=== PATIENT | female | born 1985 | race Caucasian/White ===

== ENCOUNTER 2019-07-05 00:40 | Outpatient (CLI) | payer MEDICAID, SELFPAY ==
--- NOTE | 2019-07-05 15:04 | DI.US_ITS ---
EXAM: US OB 1ST TRIMESTER CLINICAL HISTORY: CHECK SAADIA, HEARTBEAT, HX LABOR, MISCARRIAGE TECHNIQUE: Ultrasound performed using standard protocol. Transabdominal and transvaginal exams wer e performed. COMPARISON: No exams were available for comparison FINDINGS: A gestational sac is seen within the endometrium, positioned near the fundus. The uterus measures 1 0.2 x 4.5 x 6 cm. [place]-rump length of the gestational sac measurements correspond to 7 weeks 1 day. cardiac activity was demonstrated at 143-155 beats per minute. A yolk sac is seen. A corpus luteum cyst is noted on the right ovary. The left ovary is unremarkable. There is no free fluid. IMPRESSION: Living intrauterine gestation of 7 weeks 1 day.
== END 2019-07-05 01:00 ==
PROVIDERS: PCP Naturopath; Visit Provider Naturopath
DX: Z34.91 Encounter for supervision of normal pregnancy, unspecified, first trimester (principal); N83.11 Corpus luteum cyst of right ovary
CPT/HCPCS: 76801

== ENCOUNTER 2021-03-10 01:12 | Outpatient (CLI) | payer MEDICAID, SELFPAY ==
--- NOTE | 2021-03-10 | DI.US_ITS ---
Exam(s) US OB 2-3 TRIMESTER EXAM: US OB 2-3 TRIMESTER CLINICAL HISTORY: ANATOMY,Z34.81. TECHNIQUE: Transabdominal obstetrical ultrasound was performed. COMPARISON: US US OB 1ST TRIMESTER from 07/05/2019 FINDINGS: There is a single viable intrauterine gestation with cardiac activity identified-150 bpm. Amniotic fluid: There is a normal amount of amniotic fluid. Placental location: The placenta is posterior grade 1,. The placenta is slightly low lying. The dis tance between the tip of the placenta and the internal cervical os is 2 cm.Cervix is long and closed. ANATOMY: A 3 vessel umbilical cord is seen. A four-chamber cardiac view was obtained. Right and left ventricular outflow tracts were imaged. There are no obvious abnormalities of the spinal column evident. There is no obvious abnormal ity of the anterior abdominal wall. stomach and urinary bladder are identified and there is no evidence of hydronephrosis. No abnormalities of the upper lip region are identified. No evidence of choroid plexus cysts i n the brain. Dating parameters place this at approximately 19 weeks and 5 days gestational age. BPD measures 19 weeks and 3 days HC measures 19 weeks and 4 days AC measures 19 weeks and 6 days FL measures 20 weeks Estimated weight is 318 gm-0 pounds 11 ounces Fetus is at the 55th percentile on the Hadlock scale. IMPRESSION:: Single viable intrauterine gestation which is approximately 19 weeks and 5 days gestati onal age, implying an SAADIA of July 30, 2021. There are no obvious anomalies evident on today's study. The placenta is posterior and slightly low lying. On today's study the distance from the tip of the placenta to the internal cervical os is 2 cm. This should be rechecked in the 3rd trimester. There is a normal amount of amniotic fluid. DATA REPOSITORY:
== END 2021-03-10 01:32 ==
PROVIDERS: PCP Naturopath; Visit Provider Advanced Practice Midwife
DX: Z34.82 Encounter for supervision of other normal pregnancy, second trimester (principal); Z3A.19 19 weeks gestation of pregnancy
CPT/HCPCS: 76805

== ENCOUNTER 2021-04-18 22:24 | Observation (INO) | payer MEDICAID, SELFPAY ==
[2021-04-18 22:39] VITALS: BP 123/75; PULSE 102; RESP 24; TEMP 37.4; O2SAT 95
[2021-04-18 23:02] LABS: Abs Immature Grans 0.03 10^3/uL (0.0-0.06); Absolute Basophil Count 0.01 10^3/uL (0.0-0.2); Absolute Eosinophil Count 0.01 10^3/uL (0.0-0.7); Absolute Lymphocyte Count 0.81 10^3/uL (1.2-3.4); Absolute Monocyte Count 0.14 10^3/uL (0.1-0.8); Absolute Neutrophil Count 3.05 10^3/uL (1.2-6.7); Basophils % 0.2; Eosinophils % 0.2; HCT 37.4 % (36.0-46.0); HGB 12.4 g/dL (11.2-15.7); Immature Grans % 0.7; MCH 26.7 pg (27.0-33.0); MCHC 33.2 % (32.0-36.0); MCV 80.6 fL (80-95); MPV 8.9 fL (8.0-11.0); Monocytes % 3.5; Neutrophils % 75.4; Nucleated RBC 0 %; Platelet Count 156 10^3/uL (130-400); RBC 4.64 10^6/uL (3.93-5.22); RDW 13.4 % (11.7-14.6); RDW-SD 38.9 fL; WBC 4.04 10^3/uL (4.4-10.8)
--- NOTE | 2021-04-18 23:10 | W.ED.GENAD ---
Discharge Plan Disposition Patient Disposition: [facility] INPATIENT Condition: Stable Discharge Details Clinical Impression: COVID-19, Abdominal pain during , Hypokalemia Primary Care Provider: Cesia Wong ED Provider: Mo Israel Home Meds and New Rx's Prescriptions: No Action prenat.vits,ela,[id number] Tablet 1 tab PO DAILY RF: 0 [place] 8 % gel 1 appful VG DAILY RF: 0 Medical Decision Making 35-year-old female approximately 25 weeks , diagnosed with Covid 9 days ago, presents to the ER today reporting body aches, nausea, vomiting, concern for dehydration, lower abdominal pain, and voiding every time she coughs. Purely from a COVID-19 standpoint she appears well, nontoxic, afebrile, speaking in full sentences, O2 sats 95% on room air. Clinically she appears slightly dry. Abdomen soft, nontender. heart tones reveal a heart rate in the 160s. Feel as though obtaining a CBC, CMP, urinalysis, giving IV fluid is appropriate for her presentation and if unremarkable then admitting to OB for monitoring and further assessment of her lower abdominal pain Potassium is 3.1, will give 40 p.o. GFR greater than 60. Urinalysis pending. Case discussed with Dr. Zuñiga, OB, who is agreeable to have the patient admitted to the OB floor for monitoring and further assessment of her lower abdominal pain. I will write bridging orders. Medical Records Medical records reviewed: Yes I reviewed the patient's medical records. Lab Data Lab results reviewed: Yes I reviewed the patient's lab results. Labs: Laboratory Tests Range/Units 04/18/21 04/18/21 22:55 22:55 WBC (4.4-10.8) 10^3/uL 4.04 L RBC (3.93-5.22) 10^6/uL 4.64 Hgb (11.2-15.7) g/dL 12.4 Hct (36.0-46.0) % 37.4 MCV (80-95) fL 80.6 MCH (27.0-33.0) pg 26.7 L MCHC (32.0-36.0) % 33.2 RDW (11.7-14.6) % 13.4 Plt Count (130-400) 10^3/uL 156 MPV (8.0-11.0) fL 8.9 Immature Gran % 0.7 Neutrophils % 75.4 Lymphocytes % 20.0 Monocytes % 3.5 Eosinophils % 0.2 Basophils % 0.2 Nucleated RBC % % 0 Absolute Neutrophils (1.2-6.7) 10^3/uL 3.05 Absolute Lymphocytes (1.2-3.4) 10^3/uL 0.81 L Absolute Monocytes (0.1-0.8) 10^3/uL 0.14 Absolute Eosinophils (0.0-0.7) 10^3/uL 0.01 Absolute Basophils (0.0-0.2) 10^3/uL 0.01 Sodium (136-145) mmol/L 141 Potassium (3.5-5.1) mmol/L 3.1 L Chloride (98-107) mmol/L 107 Carbon Dioxide (21.0-32.0) mmol/L 24.1 Anion Gap (3-11) mmol/L 9.9 BUN (7-18) mg/dL 5 L Creatinine (0.55-1.02) mg/dL 0.5 L Estimated GFR/1.73 m2 (mL/min/1.73m2) >= 60.00 Glucose (74-106) mg/dL 107 H Calcium (8.5-10.1) mg/dL 8.5 Total Bilirubin (0.2-1.0) mg/dL 0.2 AST (15-37) U/L 42 H ALT (14-59) U/L 45 Alkaline Phosphatase (46-116) U/L 113 Total Protein (6.4-8.2) g/dL 6.2 L Albumin (3.4-5.0) g/dL 2.6 L HPI General Mode of arrival: ambulatory. Date/Time Provider Initiated Documentation: 04/18/21 22:25. Limitations to Documentation: no limitations. Information obtained by: patient. HPI Narrative: This is a 35-year-old female, past medical history that includes being diagnosed with Covid 9 days ago, G6, P5, currently about 25 weeks , states she did have 1 at 26 weeks, presenting to the ER today reporting body aches, nausea, vomiting, concern for dehydration, lower abdominal pain, and every time she coughs she voids, unsure if this is urine or amniotic fluid. Patient states overall has not felt well for the past 9 days but lower abdominal pain began over the past 24 hours. She contacted her OB team in [place] and they recommended going to the ER for further evaluation. She denies headache, fever, chest pain, shortness of breath, dysuria, hematuria, vaginal bleeding or discharge. She has been taking [id number] vitamins and supplements but no other formal treatment for Covid. Related Data Home Medications Medication Instructions Recorded Confirmed prenat.vits,ela,[id number]-[id number] 1 tab PO DAILY 07/18/19 04/18/21 progesterone micronized 8 % 1 appful VG DAILY 07/18/19 07/18/19 vaginal gel Allergies Allergy/AdvReac Type Severity Reaction Status Date / Time No Known Allergies Allergy Unverified 04/18/21 22:47 General Stated Complaint: [employer] SEEMA: 2 Review of Systems Constitutional Constitutional: Denies fever(s) and Denies weakness ENT Ears, Nose, Mouth, and Throat: Denies neck pain Cardiovascular Cardiovascular: Denies chest pain and Denies dyspnea Respiratory Respiratory: Reports cough and Denies dyspnea Gastrointestinal Gastrointestinal: Reports abdominal pain, Reports nausea and Reports vomiting Genitourinary Genitourinary: Denies abnormal vaginal bleeding, Denies dysuria and Denies vaginal discharge Musculoskeletal Musculoskeletal: Denies back pain and Denies neck pain Integumentary/Breasts Skin/Breast: Denies rash Neurologic Neurologic: Denies weakness [facility] Social History Smoking/Tobacco Use Status: Never Smoking risk assessment performed?: Yes Drug use: Never Do you feel safe at home: Yes Do you feel safe in your relationship?: Yes History History 5 Para 4 Hx # Term Pregnancies 3 Multiple births Hx # Pregnancies 1 Ectopic pregnancies AB induced Hx Number of Living Children 4 AB spontaneous Past Pregnancies Del. Date GA/Weeks # Outcome Route Wgt Sex Labor Lgth Anesthesia Location Prov Complic 01/22/20 Delivery Date: 01/22/20 Patient did not receive care here. Unsure of delivery date as patient did not appear to deliver at [facility] either. Completing as she is appearing 65+ weeks . [place] Exam Const General: cooperative, healthy appearing, comfortable and no acute distress Orientation: alert and awake HENPA Head: normal to inspection, normocephalic and atraumatic Mouth: moist mucous membranes abnormal (Slightly dry) Eyes General: appearance normal, both eyes and all related structures Conjunctivae: conjunctivae normal Neck Neck: normal visual inspection, trachea midline and supple Resp Effort & Inspection: normal respiratory effort and able to speak in complete sentences Auscultation: clear to auscultation bilaterally Cardio Rate: regular rate Rhythm: regular rhythm GI Palpation: soft and nontender Auscultation: normal bowel sounds Other: Abdominal exam is consistent with approximate 25-week gravid Back/Spine/Pelvis Back: No back tenderness Skin General skin exam: no rashes or lesions noted Neuro General: patient alert, patient awake, moves all extremities and no focal motor deficits Cognition: normal cognition Speech: speech normal Gait: normal gait Sensory Exam: no sensory deficits noted Extrem General: normal to inspection, full ROM, capillary refill normal, no pedal edema and no calf tenderness Psych Appearance: grossly normal Mental Status: mental status grossly normal Course Vital Signs Vital signs: Vital Signs Temperature 37.4 C 04/18/21 22:39 Pulse 102 H 04/18/21 22:39 Respiratory Rate 24 04/18/21 22:39 Blood Pressure 123/75 04/18/21 22:39 Pulse Oximetry 95 04/18/21 22:39 Temperature 37.4 C 04/18/21 22:39 Temperature Source Oral 04/18/21 22:39 Pulse 102 H 04/18/21 22:39 Respiratory Rate 24 04/18/21 22:39 Respiratory Effort 04/18/21 22:45 Blood Pressure 123/75 04/18/21 22:39 Pulse Oximetry 95 04/18/21 22:39 Oxygen Delivery Method Room Air 04/18/21 22:39 Oxygen Flow Rate 0 04/18/21 22:39 Lab/Test Results Lab/Test Results: Laboratory Tests Range/Units 04/18/21 22:55 WBC (4.4-10.8) 10^3/uL 4.04 L RBC (3.93-5.22) 10^6/uL 4.64 Hgb (11.2-15.7) g/dL 12.4 Hct (36.0-46.0) % 37.4 MCV (80-95) fL 80.6 MCH (27.0-33.0) pg 26.7 L MCHC (32.0-36.0) % 33.2 RDW (11.7-14.6) % 13.4 Plt Count (130-400) 10^3/uL 156 MPV (8.0-11.0) fL 8.9 Immature Gran % 0.7 Neutrophils % 75.4 Lymphocytes % 20.0 Monocytes % 3.5 Eosinophils % 0.2 Basophils % 0.2 Nucleated RBC % % 0 Absolute Neutrophils (1.2-6.7) 10^3/uL 3.05 Absolute Lymphocytes (1.2-3.4) 10^3/uL 0.81 L Absolute Monocytes (0.1-0.8) 10^3/uL 0.14 Absolute Eosinophils (0.0-0.7) 10^3/uL 0.01 Absolute Basophils (0.0-0.2) 10^3/uL 0.01
[2021-04-18 23:15] LABS: ALT 45 U/L (14-59); AST 42 U/L (15-37); Albumin 2.6 g/dL (3.4-5.0); Alkaline Phosphatase 113 U/L (46-116); Anion Gap 9.9 mmol/L (3-11); BUN 5 mg/dL (7-18); Bilirubin, Total 0.2 mg/dL (0.2-1.0); CO2 24.1 mmol/L (21.0-32.0); CREATININE 0.5 mg/dL (0.55-1.02); Calcium 8.5 mg/dL (8.5-10.1); Chloride 107 mmol/L (98-107); Glucose 107 mg/dL (74-106); Potassium 3.1 mmol/L (3.5-5.1); Sodium 141 mmol/L (136-145); Total Protein 6.2 g/dL (6.4-8.2)
[2021-04-18] MEDS: Normal Saline 1,000 ML 1000 ML IV (23:26)
--- NOTE | 2021-04-18 23:35 | NUR.NOTE ---
Report to [facility], To room 301.Nursing Note:
[2021-04-18] MEDS: Potassium Chloride 20 MEQ TABCR ×2 (23:44)
[2021-04-18 23:45] VITALS: BP 112/86; PULSE 90; RESP 20; TEMP 36.7; O2SAT 97
[2021-04-19 00:23] LABS: Bilirubin Negative (Negative); Blood Negative (Negative); Clarity Clear (Clear); Glucose Negative (Negative); Ketones Negative (Negative); Leukocyte Esterase Negative (Negative); Nitrite Negative (Negative); Specific Gravity 1.015 (1.005-1.025); Urobilinogen 0.2 EU/dL (Up TO 0.2)
[2021-04-19 00:37] LABS: ROM Plus Negative
--- NOTE | 2021-04-19 01:23 | PGE_ITS ---
Date of Service Date of service: 04/19/21 Time of Service: 01:23 Assessment and Plan Assessment and plan (1) COVID-19: Status: Acute (2) History of delivery, currently in second trimester: Status: Acute Assessment and plan: A: 35 yo at 25 wks (26 wk PTD @ [facility]) PN care @ [facility] but lives closer to [facility] Not COVID vaccinated COVID+, symptoms for 8 days, coughing and low grade fever at home Seen in ED, given IVF and potassium, sent to for OB clearance Pt actively coughing, afebrile CNM requested by Dr. Zuñiga to perform cervical check P: No labor, not parul, ROM test is negative SSE performed, VPS collected, SVE done for cervix closed/thick, PPOOP, intact membranes NST is reactive, active fetus Report conveyed to Dr. Zuñiga who now discharges pt to home Pt is instructed to follow-up with her OB Providers at [facility] (3) Elderly multigravida in second trimester: Status: Acute Subjective Subjective Patient reports: no new complaints, feels better and tolerating liquids well Exam Const General: cooperative, healthy appearing and well developed Nutritional Appearance: average body habitus Orientation: alert, awake and oriented x3 Resp Effort & Inspection: normal respiratory effort (evaluated and cleared in the ED), able to speak in complete sentences and cough Quality of cough: dry Cardio Palpation: normal PMI Rate: regular rate Speculum Exam - Vagina: normal appearance of the vagina and normal vaginal discharge (ROM test is negative, VPS collected and sent) Speculum Exam - Cervix: normal appearance of the cervix and closed Bimanual Exam- Vagina & Uterus: uterine size normal (25 week size) Manual OB Exam: other (cvx is closed, thick, no presenting part in pelvis) Skin General skin exam: no rashes or lesions noted and elasticity normal Extrem General: normal to inspection, full ROM and capillary refill normal Objective Last Vital Signs Temp 98.1 F 04/18/21 23:45 Pulse 90 04/18/21 23:45 Resp 20 04/18/21 23:45 BP 112/86 04/18/21 23:45 Pulse Ox 97 04/18/21 23:45 Laboratory Results - last 24 hr 04/18/21 04/18/21 04/18/21 22:55 22:55 23:47 WBC 4.04 L RBC 4.64 Hgb 12.4 Hct 37.4 MCV 80.6 MCH 26.7 L MCHC 33.2 RDW 13.4 Plt Count 156 MPV 8.9 Immature Gran % 0.7 Neutrophils % 75.4 Lymphocytes % 20.0 Monocytes % 3.5 Eosinophils % 0.2 Basophils % 0.2 Nucleated RBC % 0 Absolute Neutrophils 3.05 Absolute Lymphocytes 0.81 L Absolute Monocytes 0.14 Absolute Eosinophils 0.01 Absolute Basophils 0.01 Sodium 141 Potassium 3.1 L Chloride 107 Carbon Dioxide 24.1 Anion Gap 9.9 BUN 5 L Creatinine 0.5 L Estimated GFR/1.73 m2 >= 60.00 Glucose 107 H Calcium 8.5 Total Bilirubin 0.2 AST 42 H ALT 45 Alkaline Phosphatase 113 Total Protein 6.2 L Albumin 2.6 L Urine Color Yellow Urine Clarity Clear Urine pH 6.0 Ur Specific [place] 1.015 Urine Protein Negative Urine Ketones Negative Urine Blood Negative Urine Nitrite Negative Urine Bilirubin Negative Urine Urobilinogen 0.2 Ur Leukocyte Esterase Negative Urine Glucose Negative Membranes Rupture Patient ABO/Rh 04/19/21 04/19/21 04/19/21 00:09 00:09 00:10 WBC Cancelled RBC Cancelled Hgb Cancelled Hct Cancelled MCV Cancelled MCH Cancelled MCHC Cancelled RDW Cancelled Plt Count Cancelled MPV Cancelled Immature Gran % Neutrophils % Lymphocytes % Monocytes % Eosinophils % Basophils % Nucleated RBC % Absolute Neutrophils Absolute Lymphocytes Absolute Monocytes Absolute Eosinophils Absolute Basophils Sodium Potassium Chloride Carbon Dioxide Anion Gap BUN Creatinine Estimated GFR/1.73 m2 Glucose Calcium Total Bilirubin AST ALT Alkaline Phosphatase Total Protein Albumin Urine Color Urine Clarity Urine pH Ur Specific [place] Urine Protein Urine Ketones Urine Blood Urine Nitrite Urine Bilirubin Urine Urobilinogen Ur Leukocyte Esterase Urine Glucose Membranes Rupture Negative Patient ABO/Rh Cancelled
[2021-04-19 01:58] VITALS: BP 123/75; PULSE 100; TEMP 37.4
== END 2021-04-19 01:45 | disposition home or self-care (01) ==
LOC: ER 23:54 → OBS 04-19 00:09
PROVIDERS: Admitting Provider Obstetrics & Gynecology; Emergency Provider Physician Assistant; PCP Naturopath; Visit Provider Obstetrics & Gynecology
DX: O26.892 Other specified pregnancy related conditions, second trimester (principal); O98.512 Other viral diseases complicating pregnancy, second trimester; R10.30 Lower abdominal pain, unspecified; U07.1 COVID-19; M79.10 Myalgia, unspecified site; Z3A.25 25 weeks gestation of pregnancy; E86.0 Dehydration; R11.2 Nausea with vomiting, unspecified
CPT/HCPCS: 36415; 80053; 84112; 85027; 86900; 86901; 96360; 99285; 81003; 85025; 87480; 87510; 87660

== ENCOUNTER 2023-08-03 14:27 | Emergency (ER) | payer MEDICAID, SELFPAY ==
[2023-08-03 14:37] VITALS: BP 142/73; PULSE 80; RESP 18; TEMP 37.1; O2SAT 100
[2023-08-03 16:20] LABS: Abs Immature Grans 0.04 10^3/uL (0.0-0.06); Absolute Basophil Count 0.08 10^3/uL (0.0-0.2); Absolute Lymphocyte Count 2.29 10^3/uL (1.2-3.4); Absolute Monocyte Count 0.39 10^3/uL (0.1-0.8); Absolute Neutrophil Count 5.97 10^3/uL (1.2-6.7); Basophils % 0.9; Eosinophils % 2.2; HCT 38.1 % (36.0-46.0); HGB 12.6 g/dL (11.2-15.7); Immature Grans % 0.4; Lymphocytes % 25.5; MCH 27.1 pg (27.0-33.0); MCHC 33.1 % (32.0-36.0); MCV 82 fL (80-95); MPV 8.5 fL (8.0-11.0); Monocytes % 4.3; Neutrophils % 66.7; Platelet Count 316 10^3/uL (130-400); RBC 4.65 10^6/uL (3.93-5.22); RDW 12.9 % (11.7-14.6); RDW-SD 38.4 fL; WBC 8.97 10^3/uL (4.4-10.8)
--- NOTE | 2023-08-03 16:24 | W.ED.GENAD ---
HPI General Stated Complaint: SENIOR PROPERTY MANAGER Mode of arrival: ambulatory. SEEMA: 3 Date/Time Provider Initiated Documentation: 08/03/23 15:09. Limitations to Documentation: no limitations. Information obtained by: patient and RN notes reviewed. HPI Narrative: 37-year-old female presents to the ER with a chief complaint of vaginal bleeding. Patient was diagnosed last week with a threatened miscarriage by her SENIOR PROPERTY MANAGER and reports that she has been continuing to bleed since. She describes as intermittent gushing of blood. She has minimal cramping, vital signs are stable she alert and oriented x 4. She denies any dizziness or lightheadedness. She denies any fever or chills. She does see SENIOR PROPERTY MANAGER in [place]. Related Data Home Medications Medication Instructions Recorded Confirmed prenat.vits,ela,frj-susi-wxcva 1 tab PO DAILY 07/18/19 08/03/23 progesterone micronized 8 % 1 appful vaginal DAILY 07/18/19 08/03/23 vaginal gel (Crinone) Allergies Allergy/AdvReac Type Severity Reaction Status Date / Time No Known Allergies Allergy Unverified 08/03/23 14:40 Review of Systems All systems reviewed & are unremarkable except as noted in HPI and below Cardiovascular Cardiovascular: Denies lightheadedness Gastrointestinal Gastrointestinal: Denies diarrhea, Denies nausea and Denies vomiting Genitourinary Genitourinary: Reports as per HPI and Reports abnormal vaginal bleeding PFSH All Active Problems (Updated 08/03/23 @ 20:32 by Pepper Boudreaux MD) Vaginal bleeding affecting early (Acute) Elderly multigravida in second trimester (Acute) History of delivery, currently in second trimester (Acute) COVID-19 (Acute) Abdominal pain during (Acute) Hypokalemia (Acute) Elevated glucose level (Acute) Placenta previa antepartum (Acute) History of delivery, currently in first trimester (Acute) (Acute) Social History Smoking/Tobacco Use Status: Never Smoking risk assessment performed?: Yes Alcohol Intake: current Alcohol Intake frequency: holidays/special occasions only Drug use: Never Substance use type: does not use Do you feel safe at home: Yes Do you feel safe in your relationship?: Yes History History 5 Para 4 Hx # Term Pregnancies 3 Multiple births Hx # Pregnancies 1 Ectopic pregnancies AB induced Hx Number of Living Children 4 AB spontaneous Past Pregnancies Del. Date GA/Weeks # Preg Succ Route Wgt Sex Labor Lgth Anesthesia Location Prov Complic 01/22/20 Delivery Date: 01/22/20 Last Updated by: Caro Avila RN Patient did not receive care here. Unsure of delivery date as patient did not appear to deliver at [facility] either. Completing as she is appearing 65+ weeks . Exam Narrative Exam Narrative: Constitutional: Alert and oriented x3. Appears stated age. Normal body habitus. Head: Normocephalic, no trauma. Eyes: Pupils PERRL, Red reflex noted, EOM's intact. Eyelids symmetrical without lesions, discharge, or swelling. ENT: Bilateral TM's WNL, External ear normal to inspection, no mastoid TTP, swelling, or erythema, Nasal turbinates WNL, no nasal discharge. Normal dentition, Posterior pharynx WNL, no exudate. Chest: RRR, Normal S1, S2, distal pulses intact. Resp: Lungs clear to auscultation bilaterally, no wheezes, rales, or rhonchi. Abdomen: Soft, non-distended, Normoactive bowel sounds all 4 quads. Musculoskeletal: Normal gait, 5/5 strength to all four extremities. Skin: No suspicious rashes or lesions. Capillary refill less than 2 sec. Neurologic: Cranial nerves II-XII intact. Alert and oriented x 3. Motor: No deficits noted. Sensory: Intact bilaterally all 4 extremities. Reflexes: DTR's intact bilaterally.. Hematologic/Lymphatic: No ecchymosis, no lymphadenopathy. Course Vital Signs Vital signs: Vital Signs Temperature 37.1 C 08/03/23 14:37 Pulse 80 08/03/23 14:37 Respiratory Rate 18 08/03/23 14:37 Blood Pressure 142/73 H 08/03/23 14:37 Pulse Oximetry 100 08/03/23 14:37 Temperature 37.1 C 08/03/23 14:37 Temperature Source Temporal Artery Scan 08/03/23 14:37 Pulse 80 08/03/23 14:37 Respiratory Rate 18 08/03/23 14:37 Respiratory Effort Normal, Non-Labored 08/03/23 14:41 Blood Pressure 142/73 H 08/03/23 14:37 Blood Pressure Position Sitting 08/03/23 14:37 Pulse Oximetry 100 08/03/23 14:37 Oxygen Delivery Method Room Air 08/03/23 14:37 Oxygen Flow Rate 0 08/03/23 14:37 Pain Level 0 08/03/23 16:04 Lab/Test Results Lab/Test Results: Laboratory Tests Range/Units 08/03/23 16:15 WBC (4.4-10.8) 10^3/uL 8.97 RBC (3.93-5.22) 10^6/uL 4.65 Hgb (11.2-15.7) g/dL 12.6 Hct (36.0-46.0) % 38.1 MCV (80-95) fL 82 MCH (27.0-33.0) pg 27.1 MCHC (32.0-36.0) % 33.1 RDW (11.7-14.6) % 12.9 Plt Count (130-400) 10^3/uL 316 MPV (8.0-11.0) fL 8.5 Immature Gran % 0.4 Neutrophils % 66.7 Lymphocytes % 25.5 Monocytes % 4.3 Eosinophils % 2.2 Basophils % 0.9 Nucleated RBC % (0.0-0.3) % 0.0 Absolute Neutrophils (1.2-6.7) 10^3/uL 5.97 Absolute Lymphocytes (1.2-3.4) 10^3/uL 2.29 Absolute Monocytes (0.1-0.8) 10^3/uL 0.39 Absolute Eosinophils (0.0-0.7) 10^3/uL 0.20 Absolute Basophils (0.0-0.2) 10^3/uL 0.08 Medical Decision Making 37-year-old female presents to the ER with a chief complaint of vaginal bleeding. Patient was diagnosed last week with a threatened miscarriage by her SENIOR PROPERTY MANAGER and reports that she has been continuing to bleed since. She describes as intermittent gushing of blood. She has minimal cramping, vital signs are stable she alert and oriented x 4. She denies any dizziness or lightheadedness. She denies any fever or chills. She does see SENIOR PROPERTY MANAGER in [place]. AB 3 Newprt SENIOR PROPERTY MANAGER CBC CMP hCG quant and type and screen ordered. CBC shows no anemia. Ultrasound transvaginal pelvic ordered. They are not available at this time outpatient ultrasound ordered with follow-up to patient's SENIOR PROPERTY MANAGER. Will plan on pelvic exam and discharge with follow-up with SENIOR PROPERTY MANAGER. Upon being in room with patient and RN and preparing for pelvic exam patient request that she would wish to follow-up with primary SENIOR PROPERTY MANAGER, Dr. Pope to ER attending at bedside for POC ultrasound, no intrauterine visualized on POC transabdomen US. 1725: Spoke with Dr. Quiroz who is building economist for clinical provider trainer who recommends getting her records from [place]. If it is a confirmed intrauterine , ok to follow up with her SENIOR PROPERTY MANAGER. Records requested. Patient discharged in hemodynamically stable condition. An outpatient ultrasound was ordered to be done within the next 24 to 48 hours. I did discuss strict return instructions with patient and follow-up care she verbalized understanding. This text was generated using [employer] dictation system, please disregard any oddities of phrase or misspellings. Medical Records Medical records reviewed: Yes I reviewed the patient's medical records. Medical records narrative: Records of her last ultrasound were obtained from which did show a intrauterine at approximately 6 weeks. These records were scanned into her chart. Lab Data Lab results reviewed: Yes I reviewed the patient's lab results. Labs: Laboratory Tests Range/Units 08/03/23 16:15 WBC (4.4-10.8) 10^3/uL 8.97 RBC (3.93-5.22) 10^6/uL 4.65 Hgb (11.2-15.7) g/dL 12.6 Hct (36.0-46.0) % 38.1 MCV (80-95) fL 82 MCH (27.0-33.0) pg 27.1 MCHC (32.0-36.0) % 33.1 RDW (11.7-14.6) % 12.9 Plt Count (130-400) 10^3/uL 316 MPV (8.0-11.0) fL 8.5 Immature Gran % 0.4 Neutrophils % 66.7 Lymphocytes % 25.5 Monocytes % 4.3 Eosinophils % 2.2 Basophils % 0.9 Nucleated RBC % (0.0-0.3) % 0.0 Absolute Neutrophils (1.2-6.7) 10^3/uL 5.97 Absolute Lymphocytes (1.2-3.4) 10^3/uL 2.29 Absolute Monocytes (0.1-0.8) 10^3/uL 0.39 Absolute Eosinophils (0.0-0.7) 10^3/uL 0.20 Absolute Basophils (0.0-0.2) 10^3/uL 0.08 Sodium (136-145) mmol/L 137 Potassium (3.5-5.1) mmol/L 3.7 Chloride (98-107) mmol/L 103 Carbon Dioxide (21.0-32.0) mmol/L 25.6 Anion Gap (3-11) mmol/L 8.4 BUN (7-18) mg/dL 13 Creatinine (0.55-1.02) mg/dL 0.6 Est GFR (CKD-EPI 2020) (mL/min/1.73m2) 117.75 Glucose (74-106) mg/dL 96 Calcium (8.5-10.1) mg/dL 9.4 Total Bilirubin (0.2-1.0) mg/dL 0.2 AST (15-37) U/L 10 L ALT (14-59) U/L 25 Alkaline Phosphatase (46-116) U/L 65 Total Protein (6.4-8.2) g/dL 8.1 Albumin (3.4-5.0) g/dL 4.3 Beta HCG, Quant (1-3) mIU/mL 34296 H Patient ABO/Rh Cancelled Antibody Screen Cancelled Quality:SDOH Health Related Social Needs: No Data to Display Discharge Plan Disposition Patient Disposition: Home Condition: Stable Discharge Details Clinical Impression: Vaginal bleeding affecting early , Primary Care Provider: Cesia Wong ED Provider: Yandy Carlos Home Meds and New Rx's Prescriptions: No Action prenat.vits,ela,mll-zzzz-hqwdb Tablet 1 tab PO DAILY Crinone 8 % gel 1 appful VG DAILY Discharge Instructions Instructions: Threatened Miscarriage (ED) Additional Instructions: Please follow-up tomorrow or the next day for ultrasound. Please follow-up with your SENIOR PROPERTY MANAGER tomorrow. Your beta hCG level was 30,616 today. No evidence of anemia. No intrauterine noted on our [id number]-rf-bgfo bedside ultrasound transabdominal today. We were unable to get records from [facility] SENIOR PROPERTY MANAGER today. Return to the ER be seen and call your SENIOR PROPERTY MANAGER for any worsening bleeding, dizziness lightheadedness, severe pain in your abdomen or concerns. Follow up with primary care provider in 3-5 days. Return to ED sooner if any worsening or concerns. Increase oral fluids. Referrals: [facility] [Outside] - 1 day (SENIOR PROPERTY MANAGER) Cesia Wong [Primary Care Provider] - 2 days Discharge Data Discharge Date/Time-TO BE ENTERED AT DEPARTURE: 08/03/23 18:35
[2023-08-03 16:58] LABS: ALT 25 U/L (14-59); AST 10 U/L (15-37); Albumin 4.3 g/dL (3.4-5.0); Alkaline Phosphatase 65 U/L (46-116); Anion Gap 8.4 mmol/L (3-11); BUN 13 mg/dL (7-18); Bilirubin, Total 0.2 mg/dL (0.2-1.0); CO2 25.6 mmol/L (21.0-32.0); CREATININE 0.6 mg/dL (0.55-1.02); Calcium 9.4 mg/dL (8.5-10.1); Chloride 103 mmol/L (98-107); Estimated GFR 117.75 (mL/min/1.73m2); Glucose 96 mg/dL (74-106); Potassium 3.7 mmol/L (3.5-5.1); Sodium 137 mmol/L (136-145); Total Protein 8.1 g/dL (6.4-8.2)
[2023-08-03 16:59] LABS: HCG Quant, Pregnancy 30616 mIU/mL (1-3)
--- NOTE | 2023-08-03 17:01 | NUR.NOTE ---
Request for US pelvic and transvaginal ; abnormal vaginal bleeding post spontaneious / r/o retained POCS faxed to DI to be done in 24 to 48 hrs, follow up with HEAD LIBRARIAN. Nursing Note:
--- NOTE | 2023-08-03 17:24 | W.EDPROG ---
Date of service: 08/03/23 Time of Service: 17:24 Medical Decision Making seen in conjunction with the OPERATIONS ACCOUNTANT, due to medical complexity Patient with recent diagnosis of . Presenting with 1 week of vaginal bleeding. Presumed miscarriage. Patient refuses vaginal exam at this time. Bedside ultrasound performed, no intrauterine identified. Patient is hemodynamically stable, not anemic. Beta-hCG is still elevated. Discussed with OB. Patient will follow-up tomorrow for intra vaginal ultrasound and repeat beta. Medical Records Medical records reviewed: Yes I reviewed the patient's medical records. Lab Data Lab results reviewed: Yes I reviewed the patient's lab results. Quality:[facility] Health Related Social Needs: No Data to Display Discharge Plan Disposition Patient Disposition: Home Condition: Stable Discharge Details Clinical Impression: Vaginal bleeding affecting early , Primary Care Provider: Cesia Wong ED Provider: Yandy Carlos Home Meds and New Rx's Prescriptions: No Action prenat.vits,ela,rqw-hmuw-ajmbg Tablet 1 tab PO DAILY Crinone 8 % gel 1 appful VG DAILY Discharge Instructions Instructions: Threatened Miscarriage (ED) Additional Instructions: Please follow-up tomorrow or the next day for ultrasound. Please follow-up with your NATURAL SCIENCES DEPARTMENT CHAIR tomorrow. Your beta hCG level was 30,616 today. No evidence of anemia. No intrauterine noted on our inthk-pi-anyl bedside ultrasound transabdominal today. We were unable to get records from [facility] NATURAL SCIENCES DEPARTMENT CHAIR today. Return to the ER be seen and call your NATURAL SCIENCES DEPARTMENT CHAIR for any worsening bleeding, dizziness lightheadedness, severe pain in your abdomen or concerns. Follow up with primary care provider in 3-5 days. Return to ED sooner if any worsening or concerns. Increase oral fluids. Referrals: [facility] [Outside] - 1 day (NATURAL SCIENCES DEPARTMENT CHAIR) Cesia Wong [Primary Care Provider] - 2 days Discharge Data Discharge Date/Time-TO BE ENTERED AT DEPARTURE: 08/03/23 18:35
== END 2023-08-03 18:35 | disposition home or self-care (01) ==
PROVIDERS: Emergency Provider Registered Nurse Emergency; PCP Naturopath
DX: O72.2 Delayed and secondary postpartum hemorrhage (principal)
CPT/HCPCS: 00123; 36415; 80053; 86850; 86900; 86901; 99284; 84702; 85025

== ENCOUNTER → 2023-08-04 08:17 | Outpatient (CLI) | payer MEDICAID, SELFPAY ==
--- NOTE | 2023-08-04 | DI.US_ITS ---
Exam(s) US PELVIS TRANSVAGINAL EXAM: US PELVIS TRANSVAGINAL CLINICAL HISTORY: ABNL VAGINAL BLEEDING, POST SPONTANEOUS . TECHNIQUE: Transabdominal and transvaginal pelvic ultrasound was performed using standard protocol. COMPARISON: US US OB 2-3 TRIMESTER from 03/10/2021 FINDINGS: UTERUS: Position: Anteverted. Size: 10.5 long by 6.1 AP by 6.7 transverse cm Endometrium: 3.9 cm. The endometrium is heterogeneous and thickened. No increased blood flow is seen . Myometrium: Unremarkable. Cervix: Unremarkable. OVARIES: Right: 3.1 x 2.6 x 2.4 cm Cyst or mass: No suspicious cystic or solid masses. Left: 2.3 x 1.2 x 1.5 cm Cyst or mass: No suspicious cystic or solid masses. DOPPLER: Color: Symmetric and uniform flow to both ovaries. CUL-DE-SAC: Free fluid: None. Other: None. IMPRESSION: 1. Thickened heterogeneous endometrial stripe. In the appropriate clinical setting, retained product s of conception should be considered. 2. Unremarkable bilateral ovaries. DATA REPOSITORY:
== END ==
PROVIDERS: PCP Naturopath; Visit Provider Registered Nurse Emergency
DX: N93.9 Abnormal uterine and vaginal bleeding, unspecified (principal); O03.4 Incomplete spontaneous abortion without complication
CPT/HCPCS: 76830; 76856

== ENCOUNTER 2024-02-02 18:23 | Outpatient (REF) | payer MEDICAID, SELFPAY ==
[2024-02-02 21:22] LABS: Abs Immature Grans 0.02 10^3/uL (0.0-0.06); Absolute Basophil Count 0.07 10^3/uL (0.0-0.2); Absolute Eosinophil Count 0.13 10^3/uL (0.0-0.7); Absolute Lymphocyte Count 2.27 10^3/uL (1.2-3.4); Absolute Monocyte Count 0.47 10^3/uL (0.1-0.8); Absolute Neutrophil Count 4.48 10^3/uL (1.2-6.7); Basophils % 0.9 %; Eosinophils % 1.7 %; HCT 40.7 % (36.0-46.0); HGB 13.5 g/dL (11.2-15.7); Immature Grans % 0.3 %; Lymphocytes % 30.5 %; MCH 27.3 pg (27.0-33.0); MCHC 33.2 % (32.0-36.0); MCV 82 fL (80-95); MPV 10.1 fL (8.0-11.0); Monocytes % 6.3 %; Neutrophils % 60.3 %; Platelet Count 283 10^3/uL (130-400); RBC 4.94 10^6/uL (3.93-5.22); RDW 13.2 % (11.7-14.6); RDW-SD 39.7 fL; WBC 7.44 10^3/uL (4.4-10.8)
[2024-02-02 21:23] LABS: Albumin 4.3 g/dL (3.4-5.0); BUN 12 mg/dL (7-18); Chloride 105 mmol/L (98-107); Glucose 85 mg/dL (74-106)
[2024-02-02 21:37] LABS: ALT 27 U/L (14-59); AST 25 U/L (15-37); Alkaline Phosphatase 75 U/L (46-116); Anion Gap 13.2 mmol/L (3-11); Bilirubin, Total 0.37 mg/dL (0.2-1.0); CO2 23.8 mmol/L (21.0-32.0); CREATININE 0.5 mg/dL (0.55-1.02); Calcium 8.8 mg/dL (8.5-10.1); Estimated GFR 122.28 (mL/min/1.73m2); Lipase 38 U/L (16-77); Potassium 3.8 mmol/L (3.5-5.1); Sodium 142 mmol/L (136-145); Total Protein 7.5 g/dL (6.4-8.2)
== END 2024-02-02 18:24 | disposition home or self-care (01) ==
LOC: LBN 18:23
PROVIDERS: PCP Naturopath; Visit Provider Physician Assistant Medical
DX: R10.9 Unspecified abdominal pain (principal)
CPT/HCPCS: 80053; 83690; 85025